=== PATIENT | female | born 1985 | race Caucasian/White ===

== ENCOUNTER 2018-01-10 21:08 | Emergency (ER) | payer MEDICAID ==
[~2018-01-10] VITALS: Ht 162.6 cm; Wt 59.1 kg
[~2018-01-10 21:08] MED LIST: ATIVAN 0.50.5 MG/TAB PO
[2018-01-10 21:15] VITALS: BP 127/75; TEMP 98
[2018-01-10 22:02] LABS: COLLECTION METHOD CLEAN CATCH
[2018-01-10 22:04] LABS: BASO % 0.5 % (0.0-2.0); EOS # 0.1 (0.0-0.7); EOS % 0.9 % (0-4.0); GRAN % 54.2 % (42.2-75.2); HEMATOCRIT 38.8 % (37.0-47.0); LYMPH % 36.2 % (20.0-51.0); MEAN CELL VOLUME 90 fl (80.0-100.0); MEAN CORPUSCULAR HEMOGLOBIN 30 pg (27.0-31.0); MEAN CORPUSCULAR HGB CONC 34 g/dl (33.0-37.0); MEAN PLATELET VOLUME 9.3 fl (7.4-10.4); MONO # 0.4 (0.1-0.6); PLATELET COUNT 217 K/mm3 (130-400); RED BLOOD COUNT 4.31 M/mm3 (4.10-5.30)
[2018-01-10 22:13] LABS: AMORPHOUS CRYSTAL Present /uL; PH 7 (5-8); SQUAMOUS EPITHELIAL 0-2 /hpf; URINE APPEARANCE Cloudy; URINE BACTERIA None Seen /hpf; URINE BILIRUBIN Negative (NEGATIVE); URINE BLOOD Negative (NEGATIVE); URINE COLOR Yellow; URINE GLUCOSE Negative (NEGATIVE); URINE KETONE Negative (NEGATIVE); URINE LEUKOCYTE ESTERASE Negative (NEGATIVE); URINE NITRATE Negative (NEGATIVE); URINE PROTEIN(semi-quant) Negative (NEGATIVE); URINE RBC 0-2 /hpf; URINE UROBILINOGEN Negative (NEGATIVE)
[2018-01-10 22:15] LABS: BILIRUBIN,TOTAL 0.3 mg/dL (0.0-1.0); CALCIUM 9.2 mg/dL (8.4-10.2); CREATININE, serum 1.02 mg/dL (0.52-1.25); POTASSIUM 4.1 mmol/L (3.4-5.0); TOTAL PROTEIN 7.2 gm/dL (6.4-8.2)
[2018-01-10 23:03] VITALS: PULSE 84
== END 2018-01-10 23:03 | disposition home or self-care (01) ==
LOC: COL.ER 21:08
PROVIDERS: Emergency Medicine
DX: R10.2 Pelvic and perineal pain (principal); R14.0 Abdominal distension (gaseous); Z87.440 Personal history of urinary (tract) infections; Z98.890 Other specified postprocedural states
CPT/HCPCS: J2060; J2405; J7030

== ENCOUNTER 2018-07-23 18:06 | Emergency (ER) | payer MEDICAID ==
[~2018-07-23] VITALS: Ht 162.6 cm; Wt 59.1 kg
[2018-07-23 18:08] VITALS: BP 129/71; TEMP 97.9
[2018-07-23] MEDS ORDERED: CEPHALEXIN500 M1 PO (19:12)
[2018-07-23 19:35] VITALS: PULSE 72
== END 2018-07-23 19:35 | disposition home or self-care (01) ==
LOC: COL.ER 18:06
DX: S60.222A Contusion of left hand, initial encounter (principal); S60.413A Abrasion of left middle finger, initial encounter; F31.9 Bipolar disorder, unspecified; F41.9 Anxiety disorder, unspecified; F17.210 Nicotine dependence, cigarettes, uncomplicated; Z23 Encounter for immunization; W23.0XXA Caught, crushed, jammed, or pinched between moving objects, initial encounter; Y92.89 Other specified places as the place of occurrence of the external cause

== ENCOUNTER 2019-05-02 22:47 | Emergency (ER) | payer SELFPAY ==
[~2019-05-02] VITALS: Ht 162.6 cm; Wt 59.1 kg
[~2019-05-02 22:47] MED LIST changes: +CEPHALEXIN500 M1 PO
[2019-05-02 22:54] VITALS: BP 118/74; PULSE 78; TEMP 99
[2019-05-02 23:11] LABS: COLLECTION METHOD CLEAN CATCH
[2019-05-02 23:21] LABS: MUCOUS Present /lpf; PH 6 (5-8); SQUAMOUS EPITHELIAL 0-2 /hpf; URINE APPEARANCE Clear; URINE BACTERIA None Seen /hpf; URINE BILIRUBIN Negative (NEGATIVE); URINE BLOOD Negative (NEGATIVE); URINE COLOR Yellow; URINE GLUCOSE Negative (NEGATIVE); URINE KETONE Negative (NEGATIVE); URINE LEUKOCYTE ESTERASE Negative (NEGATIVE); URINE NITRATE Negative (NEGATIVE); URINE PROTEIN(semi-quant) Negative (NEGATIVE); URINE UROBILINOGEN Negative (NEGATIVE)
[2019-05-02] MEDS ORDERED: CEPHALEXIN500 M1 PO (23:58)
== END 2019-05-03 00:47 | disposition home or self-care (01) ==
LOC: COL.ER 22:47
PROVIDERS: Physician Assistant
DX: R30.0 Dysuria (principal); E86.0 Dehydration; L03.116 Cellulitis of left lower limb; F41.9 Anxiety disorder, unspecified; F31.9 Bipolar disorder, unspecified; N39.0 Urinary tract infection, site not specified; Q60.0 Renal agenesis, unilateral; F17.210 Nicotine dependence, cigarettes, uncomplicated
CPT/HCPCS: J0696

== ENCOUNTER 2019-06-15 16:23 | Emergency (ER) | payer SELFPAY ==
[~2019-06-15] VITALS: Ht 162.6 cm; Wt 59.1 kg
[2019-06-15] MEDS ORDERED: PREDNISONE20 MG PO (17:57)
[2019-06-15] MEDS ORDERED: EPIPEN 2-PAK1 MG/ML IM (18:19)
[2019-06-15 18:26] VITALS: BP 101/66; PULSE 74
== END 2019-06-15 18:26 | disposition home or self-care (01) ==
LOC: COL.ER 16:23
DX: T78.40XA Allergy, unspecified, initial encounter (principal)
CPT/HCPCS: J0171; J1200; J7512

== ENCOUNTER 2019-09-15 08:03 | Emergency (ER) | payer SELFPAY ==
[~2019-09-15] VITALS: Ht 162.6 cm; Wt 59.1 kg
[~2019-09-15 08:03] MED LIST changes: +EPIPEN 2-PAK1 MG/ML IM; +PREDNISONE20 MG PO
[2019-09-15] MEDS ORDERED: AZO-CRANBERRY450 MG PO (08:08)
[2019-09-15 08:09] VITALS: BP 134/76; TEMP 98.9
[2019-09-15 08:22] LABS: COLLECTION METHOD CLEAN CATCH
[2019-09-15 08:43] LABS: BASO % 0.9 % (0.0-2.0); EOS # 0.1 (0.0-0.7); EOS % 1.9 % (0-4.0); GRAN # 1.9 (1.4-6.5); GRAN % 40.9 % (42.2-75.2); HEMATOCRIT 41.6 % (37.0-47.0); HEMOGLOBIN 13.6 g/dl (12.5-16.0); LYMPH # 2.2 (1.2-3.4); LYMPH % 47.3 % (20.0-51.0); MEAN CELL VOLUME 93 fl (80.0-100.0); MEAN CORPUSCULAR HEMOGLOBIN 30 pg (27.0-31.0); MEAN CORPUSCULAR HGB CONC 33 g/dl (33.0-37.0); MEAN PLATELET VOLUME 8.7 fl (7.4-10.4); MONO # 0.4 (0.1-0.6); MONO % 8.6 % (1.7-9.3); PLATELET COUNT 239 K/mm3 (130-400); RED BLOOD COUNT 4.49 M/mm3 (4.10-5.30); REDCELL DISTRIBUTION WIDTH-CV 12.2 % (11.5-14.5)
[2019-09-15 08:49] LABS: URINE BACTERIA None Seen /hpf; URINE RBC 0-2 /hpf
[2019-09-15 08:53] LABS: ALANINE AMINOTRANSFERASE 16 U/L (9-52); ALBUMIN 4.5 gm/dL (3.5-5.0); ALKALINE PHOSPHATASE 52 U/L (50-136); ANION GAP 7 mmol/L (7-16); AST,SGOT 21 U/L (15-37); BILIRUBIN,TOTAL 0.7 mg/dL (0.0-1.0); BLOOD UREA NITROGEN 18 mg/dL (7-17); CALCIUM 9.1 mg/dL (8.4-10.2); CARBON DIOXIDE 29 mmol/L (22-30); CHLORIDE 102 mmol/L (98-107); CREATININE, serum 0.99 (0.52-1.25); GLUCOSE 93 mg/dL (74-106); POTASSIUM 3.8 mmol/L (3.4-5.0); SODIUM 138 mmol/L (137-145); TOTAL PROTEIN 7.8 gm/dL (6.4-8.2)
[2019-09-15 08:59] LABS: C-REACTIVE PROTEIN < 0.5 mg/dL (0.0-0.9)
[2019-09-15 09:04] LABS: PH 6 (5-8); URINE APPEARANCE Clear; URINE BILIRUBIN Negative (NEGATIVE); URINE BLOOD Negative (NEGATIVE); URINE COLOR Amber; URINE GLUCOSE Negative (NEGATIVE); URINE KETONE Negative (NEGATIVE); URINE LEUKOCYTE ESTERASE Negative (NEGATIVE); URINE NITRATE Negative (NEGATIVE); URINE PROTEIN(semi-quant) Negative (NEGATIVE); URINE UROBILINOGEN Negative (NEGATIVE)
[2019-09-15 09:22] LABS: ACETAMINOPHEN < 10 ug/mL (10-30); ALCOHOL(ethanol),MEDICAL < 10 mg/dL; SALICYLATE < 1.0 mg/dL
[2019-09-15 09:27] LABS: TRICYCLIC ANTIDEPRESS URINE NEGATIVE
[2019-09-15 10:45] VITALS: PULSE 94
--- NOTE | 2019-09-15 11:42 | NUR ---
gas systems worker requested to visit with patient due to addiction issues and overall assessment of needs. 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 Patient is currently living with her father, Pato Haas, in [facility] and would be interested in staying at the emergency correction. Worker gave patient the contact number, however, it is unlikely they will accept as she has a place to stay with family. Patient is open to drug treatment and worker provided [facility] information and contact number. Patient was encouraged to call them while in the ED, however patient did not call prior to discharge. Patient states she has two children, ages 14 and 8 and that they are living with their father and that it is a good situation for them and they are happy. Patient states that her mother resides in [place] and patient can go there, however, it would not be conducive to getting a job and having transporation. Patient denies that she is being forced to perform any act against her will. Patient states that she is in a 3 year relationship with [facility] and that they both struggle with addiction and need to get sober. Worker encouraged patient to pursue [facility] to get approval for treatment placement. Worker collaborated with ED provider and nurse regarding the above information.
== END 2019-09-15 10:55 | disposition home or self-care (01) ==
LOC: COL.ER 08:03
PROVIDERS: Physician Assistant
DX: R10.9 Unspecified abdominal pain (principal)